=== PATIENT | female | born 1955 | race Caucasian/White ===

== ENCOUNTER 2025-07-23 02:55 | Outpatient (CLI) | payer MEDICARE, SELFPAY ==
--- NOTE | 2025-07-23 08:30 | DI.US_ITS ---
APPROVED REPORT EXAM: Comprehensive 2D, Doppler, and color-flow Echocardiogram Patient Location: Out-Patient Video Conference Specialist: Katerina Payton RDCS (AE) Indications: s/p Mitral valve repair 1 month Other Information Study Quality: Adequate Conclusion Normal left ventricular wall thickness and chamber size. Ejection fraction is 60%. Wall motion is normal Normal right ventricular size and function Both atria are normal in size The aortic valve is mildly sclerotic and trileaflet without stenosis or regurgitation There is been a mitral valve repair with an angioplasty ring. Trace mitral regurgitation Mild tricuspid regurgitation. Estimated right ventricular systolic pressure is 47 mmHg Wall motion Left Ventricle The left ventricle is normal size. The left ventricular systolic function is normal. The left ventricular ejection fraction is within the normal range. There is normal left ventricular wall thickness. There is normal LV segmental wall motion. There is no ventricular septal defect visualized. LVEF is 60%. Right Ventricle The right ventricle is normal size. The right ventricular systolic function is normal. Atria The left atrium size is normal. The right atrium size is normal. The interatrial septum is intact with no evidence for an atrial septal defect. Aortic Valve The aortic valve is mildly sclerotic Aortic valve is trileaflet. There is no aortic valvular stenosis. No aortic regurgitation is present. Mitral Valve Mitral annuloplasty changes are present. No evidence of mitral valve stenosis. Trace mitral regurgitation. Tricuspid Valve The tricuspid valve is normal in structure. There is no tricuspid valve stenosis. Mild tricuspid regurgitation. The RVSP is 46.7mmHg. Pulmonic Valve The pulmonary valve is normal in structure. There is no pulmonic valvular stenosis. There is no pulmonic valvular regurgitation. Great Vessels The aortic root is normal in size. The ascending aorta is mildly dilated. Aortic arch is not well visualized. IVC is normal in size and collapses >50% with inspiration. Pericardium Mild circumferential pericardial effusion. 2D Dimensions IVSD d PLAX 0.90 cm F: 0.6-1.0 Ao Root d 3.09 cm F: 2.7 - 3.3 LVPW d PLAX 0.90 cm F: 0.6 - 1.0 Ao Asc Diam d 3.36 cm F: 2.3 - 3.1 LVID d PLAX 4.30 cm F: 3.8 - 5.2 LVDs 3.01 cm F: 2.2 - 3.5 LV EF Teichholz 57.7 % FS 30.10 % LV EDV (Teich) 83.1 mL LV ESV (Teich) 35.2 mL M-Mode TAPSE 1.25 cm (M/F) >1.7 Auto EF LV EDV A4C 63.5 mL LV EDV A2C 75.9 mL LV EDV BP 70.4 mL LV ESV A4C 26.5 mL LV ESV A2C 32.2 mL LV ESV BP 29.1 mL LVEF(%) A4C 58.2 % LVEF(%) A2C 57.6 % LVEF(%) BP 58.7 % LV SV A4C 37.0 ml LV SV A2C 43.7 ml LV SV BP 41.3 ml LV CO A4C 2.6 L/min LV CO A2C 3.1 L/min LV CO BP 2.9 L/min HR A4C 70.45 BPM HR A2C 71.40 BPM LV EDV Index (BP) LA Volume LA Length A4C 4.0 cm LA Length A2C 4.5 cm LA Area A4C s 11.44 cm2 LA Area A2C s 11.82 cm2 LA Vol A4C A-L 27.45 mL LA Vol A2C A-L 26.53 mL LA Vol Biplane A-L 28.4 mL LA Vol/BSA A4C A-L LA Vol/BSA A2C A-L LA Vol/BSA BP A-L 19.7 mL/m2 LA Vol A4C MOD 25.6 mL LA Vol A2C MOD 24.6 mL LA Vol BP MOD 26.1 mL RA Volume RA Area A4C 8.1 cm2 RA ESV A4C (A-L) 17.5mL RA Vol/BSA A4C A-L RA Length A4C 3.2 cm RA ESV A4C (MOD) 15.7mL LV Diastology MV E Vmax 0.87 (0.4-1.3 m/s) MV A Vmax 0.95 (0.4-1.3 m/s) E/A Ratio 0.9 Aortic Valve AoV Vmax 1.28 m/s LVOT Vmax 0.93 m/s AoV Peak Grad 6.6 mmHg LVOT Peak Grad 3.5 mmHg AoV Area (Vmax) 2.23 cm2 LVOT VTI 0.196 m AoV VTI 0.263 m LVOT Mean Grad 1.9 mmHg AoV Mean Fuad. 0.89 m/s LVOT SV 60.29 mL AoV Mean Grad 3.5 mmHg LVOT Diam s 1.95 cm AoV Area (VTI) 2.29 cm2 AV Regurg Peak Gr. 6.56 mmHg Velocity Ratio 0.73 Mitral Valve MV DT 247 (160-240 msec) MV Vmax TIPS 1.04 m/s MV Mean Grad 2.0 (<2mmHg) MV VTI 0.273 m Pulmonary Valve PV Vmax 0.77 (0.5-1.5 m/s) RVOT Vmax 0.71 m/s PV Peak Grad 2.3 mmHg RVOT Peak Gr. 2.0 mmHg PV Mean Fuad 0.54 m/s RVOT VTI 0.147 m PV Mean Grad 1.3 mmHg RVOT Mean Gr. 0.9 mmHg Tricuspid Valve RA Pressure 3.00 mmHg TR Vmax 3.31 m/s TV S' 0.12 m/s TR Peak Grad 43.6 mmHg RVSP (TR) 46.7 mmHg
== END 2025-07-23 03:15 ==
PROVIDERS: PCP Nurse Practitioner; Visit Provider Registered Nurse
DX: Z98.890 Other specified postprocedural states (principal); I35.0 Nonrheumatic aortic (valve) stenosis; Z95.2 Presence of prosthetic heart valve
CPT/HCPCS: 93306